=== PATIENT | female | born 1990 | race African-American/Black ===

== ENCOUNTER 2025-04-28 19:48 | Emergency (ER) | payer MEDICAID, OTHER ==
[~2025-04-28] VITALS: Ht 170.2 cm; Wt 68.1 kg
[2025-04-28] MEDS ORDERED: DEXTROSE (50%) 50ML SYRG IV ONE (19:49)
[2025-04-28 19:54] VITALS: TEMP 91.6
--- NOTE | 2025-04-28 20:00 | ED.PDOC ---
CPR-HPI HPI Comments 34-year-old female who came to ER via EMS in cardiac arrest. Per EMS, patient was last seen normal 2 hours ago. Family members came home, and saw the patient lying unresponsive. CPR was initiated by numbers as paramedics were called. Patient unresponsive on scene, asystole, CPR continued (22 minutes prior to arrival), bagging done, IO inserted at right leg, fluids given, epinephrine x5, Narcan x1 prior to arrival to the ER. Patient remained asystole and unresponsive the entire time. Patient has history of drug abuse. 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 Notes Allergies: Coded Allergies: No Known Drug Allergy (Verified Allergy, Unknown, 04/28/25) Information Source: Emergency Med Personnel Mode of Arrival: EMS Timing: Minutes Duration: Down time prior EMS:, Total time prior hopital: (22 minutes) Onset: Unknown Inital rhythm: Asystole Treatment: CPR, IV, Epinephrine Response: No response Past Medical History PAST MEDICAL HISTORY: Unobtainable Surgical History: Unobtainable [employer] History: Unobtainable Family History Family History: Unobtainable Social History Smoker: Unobtainable Alcohol: Unobtainable Drugs: Unobtainable Lives In: Home Unable to Obtain due to: Medical Urgency Physical Exam Exam Comments CPR in progress, gravely ill appearing, not intubated prior to arrival but bagged with BVM General Appearance: Severe Distress HEENT: Other (pupils fixed and dilated, no blink reflex, no gag reflex) Neck: Normal Inspection, Supple Respiratory: Other (no spontaneous respirations, clear with bagging) Cardiovascular: Other (no aucultatory pulse, no palpable pulse) Breast Exam: Normal Gastrointestinal: Non Tender, Soft Genitalia: Normal Pelvic: Deferred Rectal: Deferred Extremities: No pedal edema, Other (cool) Musculoskeletal : Apperance: Normal Neurologic: Other (unresponsive, GCS 3) Cerebellar Function: Normal Reflexes: None Skin: Dry, Other (cool) Lymphatic: No Adenopathy Was a procedure done? Was a procedure done?: Yes Sedation Sedation?: No Intubation Indication: Altered Mental Status Prep: Preoxygenation Pretreated with: Nothing Medicated with: Nothing Intubation Approach: Orotracheal Intubation size: cm (7.5) Informed consent obtained: No Risks/benefits/alt described: No Differential Dx CPR Differential Diagnosis: Cardiopulmonary arrest, Cardiac Tamponade, Cardiogenic shock, Dysrhythmia, Electrolyte disorder, Heart Block, Myocardial Infarction, Pneumothorax, Pulmonary Embolus, Respiratory Failure, Ruptured Aortic Aneurysm, Other X-Ray, Labs, Meds, VS Vital Signs Date Time Temp Pulse Resp B/P (MAP) Pulse Ox O2 Delivery O2 Flow Rate FiO2 04/28/25 19:54 91.6 91.6 Time of 1ST Reevaluation: 19:55 Reevaluation 1ST: Unchanged Patient Education/Counseling: Pt Unresponsive Family Education/Counseling: No Family Present SEPSIS Sepsis Screen Vital Signs Date Time Temp Pulse Resp B/P (MAP) Pulse Ox O2 Delivery O2 Flow Rate FiO2 04/28/25 19:54 91.6 91.6 Departure 1 Departure Time of Disposition: 19:57 Impression: Primary Impression: Cardiopulmonary arrest Disposition: 20 Condition: Other Discharged With: Relative (Sibling) Comments CPR was continued in the emergency department. I intubated the patient with 7 half cuffed ET tube and four MAC blade. ACLS medications given. Patient remained in asystole the entire time with no pulses. Pupils fixed and dilated. No gag or blink reflex. Patient was declared at 7:57 p.m. Critical Care Note Critical Care Time?: Yes (35 min-critical care time only) Critical care comment: Total critical care time: Approximately 36 minutes Due to a high probability of clinically significant, life threatening deterioration, the patient required my highest level of preparedness to intervene emergently and I personally spent this critical care time directly and personally managing the patient. This critical care time included obtaining a history; examining the patient; pulse oximetry; ordering and review of studies; arranging urgent treatment with development of a management plan; evaluation of patient's response to treatment; frequent reassessment; and, discussions with other providers. This critical care time was performed to assess and manage the high probability of imminent, life-threatening deterioration that could result in multi-organ failure. It was exclusive of separately billable procedures and treating other patients. Heart Score Heart Score: Heart Score Response (Comments) Value History N/A 0 EKG N/A 0 Age N/A 0 Risk Factors N/A 0 Troponin N/A 0 Total 0 Stability Stability form required: No I personally scribed for TAMI KAPADIA MD ([email or web address]) on 04/28/25 at 20:00. Electronically submitted by Rg Bell ([email or web address]). TAMI KAPADIA MD Apr 28, 2025 20:00
--- NOTE | 2025-04-28 20:14 | RESUS ---
CODE BLUE ASSESSSMENT History of Events History of Events: Pt BIBA with CPR in-progress via ABDELRAHMAN device. Per EMS, pt was found down by brother with call to EMS at 1923. Per EMS, pt was last seen approx 2hrs prior. Initial rhythm asystole and remained asystole throughout transport. IO established to proximal R tibia with Epi x5 given, last dose 2 mins prior to arrival to ER. Pt also received Narcan 1mg. Initial Information Date: Apr 28, 2025 Time: 19:48 Location of Arrest: In Field Arrest Witnessed: No CPR started initial time: 19:23 CPR started by whom: Bystander (Family) Last seen well: 1730 Pre-Hospital Care: ACLS Type of arrest: Cardiac, Respiratory, Adult, Unwitnessed Spontaneous Respirations: No Pulse Present: No Monitoring: ECG, Pulse Oximetry, Telemetry Crash Cart Opened and Supplies: Yes Airway Ventilation Breathing at Onset: Assisted Oxygen Delivery Method: Ambu-Bag Time of first Assisted Ventila: 19:48 Artificial Ventilation: Bag/Mask Intubation Time: 19:51 Intubation Size: 7.5 cuffed Intubated by: Dr Bobo Intubation Attempts: 1 Intubated orally: Yes Intubated Nasaly: No Tube secured at: 22 (cm at teeth) Cricoid pressure done: Yes CO2 indicator used: Yes Confirmation: Exhaled CO2 Suctioning (Oral/Tracheal): No Circulation Circulation #1: Time: 19:48 Pulse Rate (adult): 0 Blood Pressure Systolic: 0 Blood Pressure Diastolic: 0 Temperature (Fahrenheit): 91.6 (F; rectal) Circulation Comment: Asystole Circulation #2: Time: 19:50 Pulse Rate (adult): 0 Blood Pressure Systolic: 0 Blood Pressure Diastolic: 0 Circulation Comment: Asystole Circulation #3: Time: 19:53 Pulse Rate (adult): 0 Blood Pressure Systolic: 0 Blood Pressure Diastolic: 0 Circulation Comment: Asystole Circulation #4: Time: 19:55 Pulse Rate (adult): 0 Blood Pressure Systolic: 0 Blood Pressure Diastolic: 0 Circulation Comment: Asystole Circulation #5: Time: 19:57 Pulse Rate (adult): 0 Blood Pressure Systolic: 0 Blood Pressure Diastolic: 0 Circulation Comment: Asystole Procedure - IV Procedure - IV : IV start time: 19:50 IV Side: Right IV Location: Antecubital IV Catheter Type: Saline Lock IV Placed: In Hospital IV Placed by Jono Marti RN IV Gauge: 18 IV Line Care: Saline Flush Medications & Response Medications and Responses #1: Medication Time: 19:51 ADULT Medications Given ADULT: Epinephrine 1 mg Route of Administration: IV Heart Rate: 0 EKG Rhythm: Asystole Blood Pressure Systolic: 0 Blood Pressure Diastolic: 0 Respiratory Rate: 0 EKG Rhythm: Asystole Medications and Responses #2: Medication Time: 19:53 ADULT Medications Given ADULT: Sodium Bacarbinate 50 meq Route of Administration: IO Heart Rate: 0 EKG Rhythm: Asystole Blood Pressure Systolic: 0 Blood Pressure Diastolic: 0 Respiratory Rate: 0 EKG Rhythm: Asystole Medications and Responses #3: Medication Time: 19:54 ADULT Medications Given ADULT: D50 (amp) Route of Administration: IV Heart Rate: 0 EKG Rhythm: Asystole Blood Pressure Systolic: 0 Blood Pressure Diastolic: 0 Respiratory Rate: 0 EKG Rhythm: Asystole Medications and Responses #4: Medication Time: 19:56 ADULT Medications Given ADULT: Epinephrine 1 mg Route of Administration: IV Heart Rate: 0 EKG Rhythm: Asystole Blood Pressure Systolic: 0 Blood Pressure Diastolic: 0 Respiratory Rate: 0 EKG Rhythm: Asystole Nurses Notes [place] Coma Scale Eye Opening: None (1) [place] Coma Scale Verbal: None (1) [place] Coma Scale Motor: None (1) [place] Total: 3 Pupil Reaction: Non Reactive Bedside Blood Glucose: 62 Time Code Ended Time Code Ended: 19:57 Post Arrest Status: Outcome of code: Unsuccessful Patient pronounced by: Dr Bobo Time patient pronounced: 19:57 Family notified: Yes Code Team Present: Dr Bobo - FABRICE HALL; Jono Marti, RN - ER Charge; Shanta Joseph RN - Color Blender; Kyleigh Pappas RN; Bam Maher RN; Amelia Garcia, RT; Steve Munoz, ERT; Colleen Garcia, ERT; Raven Davis, Shanta Elias Apr 28, 2025 20:14
== END 2025-04-28 19:57 ==
LOC: ER 19:48 → EDBD 19:48 → ER 19:57
DX: I46.9 Cardiac arrest, cause unspecified (principal)
CPT/HCPCS: 31500; 82947; 92950